=== PATIENT | male | born 1995 | race Caucasian/White ===

== ENCOUNTER → 2019-04-14 | Outpatient (REF) | payer BC | LOC: M LAB REF 12:48 | PROVIDERS: ATTEND Nurse Practitioner Family | DX: J03.90 Acute tonsillitis, unspecified (principal) ==

== ENCOUNTER → 2025-05-27 | Outpatient (CLI) | payer BC | LOC: MERGE 04-28 11:00 → M SLEEP HO 11:07 | PROVIDERS: ATTEND Family Medicine | DX: R06.83 Snoring (principal) ==